=== PATIENT | female | born 1980 | race African-American/Black ===

== ENCOUNTER 2022-03-07 20:24 | Inpatient (IN) | payer OTHER ==
[~2022-03-07] VITALS: Ht 170.2 cm; Wt 75.7 kg
--- NOTE | 2022-03-07 20:50 | NUR ---
SE RECIBE PTE ALERTA Y ORIENTADA X3, QUIEN REFIERE JAZMINE [id number] CON EPISODIOS DE VOMITOS DESDE EDITH MIERCOLES MIENTRAS ESTABA DE CRUCERO. PTE ES TRAIDA AL HOSPITAL EN AMBULANCIA, VERBALIZA LORENZO TENIDO 4X EPISODIOS DE VOMITOS EN LA TARDE DE HOY, EL ULTIMO FUE MIENTRAS SE LE REALIZABA TRIAGE. SE PORTER S/V Y SE UBICA PTE EN SANJEEV 12 PARA EVALUACION PEDIATRICA.
--- NOTE | 2022-03-07 21:31 | NUR ---
SE REALZIA CANALIZACION Y AMI DE MUESTRAS A PACIENTE BAJO MEDIDAS ASEPTICAS Y DE SEGURIDAD. SE ADMISNITRAN MEDICAMENTOS LUCY ORDEN MEDICA. TRATAMIENTO OFRECIDO POR [place]. SE MANTIENE PACIENTE EN OBSERVACION PENDIENTE A RESULTADOS DE LABORATORIOS.
--- NOTE | 2022-03-07 22:04 | NUR ---
SE REALIZA CANALIZACION DE MEDIPORT DEL LADO LT BAJO MEDIDAS ESTERILES Y SE SEGURIDAD CON ANGIO #19. PACIENTE NOS OTORGA EL PERMISO PARA EL USO DE MEDIPORT DEBIDO A QUE NO CUENTA CON BUEN ACCESO VENOSO. DR GRAHAM AUTORIZA EL USO DEL MEDIPORT.
--- NOTE | 2022-03-08 02:30 | NUR ---
PACIENTE ALERTA Y ORIENTADA X3. SE ORIENTA SOBRE TX A RECIBIR Y REFIRIO ENTENDER. SE ADMINISTRA MEDICAMENTOS MORDENADOS POR MD. IV FLUID PATENTE Y PADMINI DE EDEMA Y ERITEMA. SE COLOCA CANULA NASAL A 2 LITROS.
--- NOTE | 2022-03-08 05:55 | NUR ---
SE NOTIFICA A TECNICO DE CT MR. BOSWELL CT ABDOMEN Y PELVICO ORDENADO POR . Yeimy BINTA ADMINISTRA MEDICAMENTO ORDENADO POR
--- NOTE | 2022-03-08 07:14 | NUR ---
PACIENTE REEVALUADA POR EL DR. CONTE SE REALIZAN MUESTRAS DE LABORATORIO Y SE ENTREGA ENVASE DE U/A. SE NOTIFICA PERSONAL DE TERAPIA RESPIRATORIA HINSON SOBRE ABG PENDIENTES.
--- NOTE | 2022-03-08 13:05 | NUR ---
SE REALIZA ADMINISTRACION DE MEDICAMENTOS POR ORDEN MEDICA. Y SE ORENTA A PACIENTE SOBRE USO Y EFECTOS.
--- NOTE | 2022-03-08 14:34 | NUR ---
SE REALIZA ADMINISTRACION DE ANTIBIOTICOS POR ORDEN MEDICA. PACIENTE EN ESPERA DE CONSULTA POR DRA. OTERO.
--- NOTE | 2022-03-08 15:08 | NUR ---
SE RECIBE PTE TRANQUILA DORMIDA EN SANJEEV CON BARANDAS ELEVADAS. PTE CANALIZADA POR MEDPORT, PTE CON DRIP .9NSS BAJANDO A 250ML/HR.PTE PENDIENTE A CONSULTA CON MEDICINA INTERNA.
== END 2022-03-11 18:22 | disposition home or self-care (01) | DRG 392 ==
LOC: ER 20:24 → MEDJ 03-08 19:28
PROVIDERS: ADMIT Internal Medicine; ATTEND Internal Medicine
PROC: BW21ZZZ Computerized Tomography (CT Scan) of Abdomen and Pelvis (ICD-10-PCS; principal; 2022-03-08)
DX: K52.89 Other specified noninfective gastroenteritis and colitis (principal); K38.8 Other specified diseases of appendix; D57.40 Sickle-cell thalassemia without crisis; E86.0 Dehydration; Z20.822 Contact with and (suspected) exposure to COVID-19